=== PATIENT | male | born 1955 | race African-American/Black ===

== ENCOUNTER 2024-05-17 12:22 | Emergency (ER) | payer OTHER ==
[2024-05-17 12:27] VITALS: BP 114/75; PULSE 78; RESP 18; TEMP 98.4; BMI 17.6
== END 2024-05-17 13:50 | disposition home or self-care (01) ==
LOC: JERFT 12:22 → JER 12:22 → JERFT 13:50
DX: J01.01 Acute recurrent maxillary sinusitis (principal); H61.22 Impacted cerumen, left ear
CPT/HCPCS: 99283-25

== ENCOUNTER 2024-07-02 19:33 | Inpatient (IN) | payer OTHER ==
[2024-07-02 19:40] VITALS: BMI 15.7
[2024-07-02] MEDS ORDERED: FAMOTIDINE 20 MG/50 ML IVPB 20 MG/50 ML MG IVPB ONE (20:59)
[2024-07-02] MEDS ORDERED: ONDANSETRON 4 MG/2 ML VIAL ONE (20:59)
[2024-07-02] MEDS ORDERED: ACETAMINOPHEN INJECTION 100 ML ONE (20:59)
[2024-07-02] MEDS: ONDANSETRON 4 MG/2 ML VIAL IVPUSH ONE (21:06)
[2024-07-02] MEDS: ACETAMINOPHEN 1000 MG/100 ML BAG IVPB ONE (21:06)
[2024-07-02 21:07] LABS: BASO % 0.2 % (0-2.0); EOS % 1.3 % (0-4.5); HEMATOCRIT 36.6 % (35.4-49); HEMOGLOBIN 12.4 GM/dL (11.7-16.9); LYMPH % 5.9 % (8-40); MCH 33.2 pg (25.7-33.7); MCHC 33.9 g/dl (32.0-35.9); MEAN CELL VOLUME 97.9 fl (80-96); MEAN PLT VOLUME 8.2 fl (7.5-11.1); MONO % 8.6 % (3.8-10.2); PLATELET COUNT 216 10^3/uL (134-434); RBC 3.74 M/mm3 (4.00-5.60); RDW 14.8 % (11.9-15.9); WHITE BLOOD COUNT 8.6 K/mm3 (4.0-10.0)
[2024-07-02] MEDS: FAMOTIDINE 20 MG/50 ML IVPB 20 MG/50 ML MG IVPB ONE (21:28)
[2024-07-02 21:33] LABS: POTASSIUM 3.8 mmol/L (3.5-5.1)
[2024-07-02 21:35] LABS: ALBUMIN 3.9 g/dl (3.4-5.0); CALCIUM 9.7 mg/dL (8.5-10.1); MAGNESIUM 2.6 mg/dL (1.8-2.4)
[2024-07-02 21:38] LABS: CREATININE 1.8 mg/dL (0.55-1.3)
[2024-07-02 21:40] LABS: BILIRUBIN,TOTAL 0.7 mg/dL (0.2-1)
[2024-07-02] MEDS: LACTATED RINGERS SOLUTION 1000 ML INFUS.BAG IV ONE (22:02)
[2024-07-02] MEDS ORDERED: ONDANSETRON 4 MG/2 ML VIAL IVPUSH PRN (22:56)
[2024-07-02] MEDS ORDERED: SODIUM CHLORIDE 1,000 ML IV SCH (23:00)
[2024-07-03] MEDS: SODIUM CHLORIDE 1,000 ML IV SCH (00:58)
[2024-07-03 02:02] LABS: COCAINE, UR NEGATIVE (NEGATIVE); URINE AMPHETAMINES NEGATIVE (NEGATIVE); URINE BENZODIAZEPINES NEGATIVE (NEGATIVE)
[2024-07-03 02:03] LABS: PHENCYCLIDINE,URINE NEGATIVE (NEGATIVE)
[2024-07-03 02:14] LABS: METHADONE, UR POSITIVE (NEGATIVE); OPIATES, URI POSITIVE (NEGATIVE); URINE BARBITURATES NEGATIVE (NEGATIVE)
[2024-07-03] MEDS ORDERED: ACETAMINOPHEN 1000 MG/100 ML BAG IVPB PRN (06:17)
[2024-07-03] MEDS ORDERED: methaDONE HCL 10 MG TABLET ONE (06:36)
[2024-07-03] MEDS: methaDONE HCL 40 MG DISPERSABLE TABLET PO ONE (06:41)
[2024-07-03 07:30] LABS: HEMATOCRIT 29.7 % (35.4-49); HEMOGLOBIN 10.1 GM/dL (11.7-16.9); MCH 33.7 pg (25.7-33.7); MCHC 33.8 g/dl (32.0-35.9); MEAN CELL VOLUME 99.6 fl (80-96); PLATELET COUNT 173 10^3/uL (134-434); RBC 2.98 M/mm3 (4.00-5.60); RDW 14.1 % (11.9-15.9); WHITE BLOOD COUNT 5.5 K/mm3 (4.0-10.0)
[2024-07-03 07:45] LABS: POTASSIUM 3.8 mmol/L (3.5-5.1)
[2024-07-03 07:47] LABS: CALCIUM 8.6 mg/dL (8.5-10.1)
[2024-07-03 07:48] LABS: ALBUMIN 3.2 g/dl (3.4-5.0); BLOOD UREA NITROGEN 43.1 mg/dL (7-18); MAGNESIUM 2.3 mg/dL (1.8-2.4)
[2024-07-03 07:51] LABS: CREATININE 1.6 mg/dL (0.55-1.3); PHOSPHOROUS 2.9 mg/dL (2.5-4.9)
[2024-07-03 07:52] LABS: BILIRUBIN,TOTAL 0.7 mg/dL (0.2-1)
[2024-07-03 07:54] LABS: TOT PROT 6.1 g/dl (6.4-8.2)
[2024-07-03] MEDS ORDERED: PATIENT'S OWN MEDICATION (NON-FORMULARY) (Azelastine Hcl [Azelastine Hcl] 137 MCG/0.137 ML NS SCH (10:00)
[2024-07-03] MEDS: HEPARIN NA (PORCINE) 5,000 UNITS/ML 1ML VIAL SQ SCH (10:05)
[2024-07-03 11:25] VITALS: RESP 18
[2024-07-03] MEDS: LORATADINE 10 MG TABLET PO SCH (22:21)
[2024-07-04 06:53] VITALS: BP 123/72; PULSE 64; TEMP 98.2
[2024-07-04] MEDS: methaDONE HCL 40 MG DISPERSABLE TABLET PO ONE (10:10)
[2024-07-04 10:27] LABS: BASO % 0.7 % (0-2.0); EOS % 8.2 % (0-4.5); HEMATOCRIT 27.4 % (35.4-49); HEMOGLOBIN 9.3 GM/dL (11.7-16.9); LYMPH % 10.4 % (8-40); MCH 33.5 pg (25.7-33.7); MCHC 33.8 g/dl (32.0-35.9); MEAN CELL VOLUME 99.1 fl (80-96); MEAN PLT VOLUME 8.6 fl (7.5-11.1); MONO % 8.4 % (3.8-10.2); NEUT % 72.3 % (42.8-82.8); PLATELET COUNT 166 10^3/uL (134-434); RBC 2.76 M/mm3 (4.00-5.60); RDW 14.5 % (11.9-15.9); WHITE BLOOD COUNT 5.2 K/mm3 (4.0-10.0)
[2024-07-04 10:53] LABS: POTASSIUM 3.6 mmol/L (3.5-5.1)
[2024-07-04 11:03] LABS: ALBUMIN 2.9 g/dl (3.4-5.0); BLOOD UREA NITROGEN 28.5 mg/dL (7-18); CALCIUM 8.2 mg/dL (8.5-10.1)
[2024-07-04 11:06] LABS: BILIRUBIN,TOTAL 0.8 mg/dL (0.2-1); TOT PROT 5.8 g/dl (6.4-8.2)
[2024-07-04 11:07] LABS: CREATININE 1.4 mg/dL (0.55-1.3)
[2024-07-04] MEDS: LACTATED RINGERS SOLUTION 1,000 ML/1,000 ML INFUS.BAG IV SCH (15:05)
== END 2024-07-04 16:18 | disposition home or self-care (01) | DRG 392 ==
LOC: JER 19:33 → JERBED 22:24 → OBSVTOIN 07-03 09:03 → J8W 07-03 09:24
PROVIDERS: ADMIT Internal Medicine
DX: K29.00 Acute gastritis without bleeding (principal); E86.0 Dehydration; R19.7 Diarrhea, unspecified
CPT/HCPCS: 0241U-QW; 36415; 71045-TC-FY; 80053; 80307; 83690; 83735; 84100; 84484; 85025; 85027; 93005; 93010; 99285-25; G0378; J0131; J1644

== ENCOUNTER 2024-10-11 14:27 | Emergency (ER) | payer OTHER ==
[2024-10-11 14:34] VITALS: RESP 18; TEMP 98.3; BMI 18.3
[2024-10-11] MEDS ORDERED: ACETAMINOPHEN 500 MG TABLET (FP) PO ONE (15:18)
[2024-10-11] MEDS ORDERED: ACETAMINOPHEN 1000 MG/100 ML BAG IVPB ONE (15:20)
[2024-10-11] MEDS ORDERED: ACETAMINOPHEN 500 MG TABLET (FP) ONE (15:46)
[2024-10-11] MEDS: ACETAMINOPHEN 500 MG TABLET (FP) PO ONE (15:51)
[2024-10-11 17:49] LABS: THROAT:GRP A STREP NOT DETECTED (NOTDETECTED)
[2024-10-11 18:03] VITALS: BP 151/100; PULSE 84
== END 2024-10-11 18:03 | disposition home or self-care (01) ==
LOC: JER 14:27
DX: J02.9 Acute pharyngitis, unspecified (principal); R05.9 Cough, unspecified; Z20.822 Contact with and (suspected) exposure to COVID-19
CPT/HCPCS: 0241U-QW; 71046-TC-FY; 87651; 99284-25

== ENCOUNTER 2024-12-31 18:59 | Inpatient (IN) | payer OTHER ==
[2024-12-31] MEDS: LACTATED RINGERS SOLUTION 1000 ML INFUS.BAG IV ONE (19:56)
[2024-12-31 20:15] LABS: VENOUS BASE EXCESS 5.1 mmol/L (-2-2); VENOUS O2 SATURATION 26.5 % (70-80); VENOUS PCO2 61.5 mmHg (38-52); VENOUS PH 7.337 (7.310-7.410)
[2024-12-31 20:17] LABS: ABSOLUTE IMMATURE GRANULOCYTES 0.03 x10^3/uL (0.0-0.031); BASOPHILS # 0.02 x10^3/uL (0.01-0.08); EOSINOPHIL % 1.6 % (0.8-7.0); EOSINOPHILS # 0.13 x10^3/uL (0.04-0.54); HEMOGLOBIN 10.2 g/dL (13.7-17.5); MCHC 31.9 g/dl (32.3-36.5); MEAN CELL VOLUME 100.3 fl (79.0-92.2); MEAN PLT VOLUME 10.9 fl (9.4-12.4); MONOCYTE # 0.57 x10^3/uL (0.30-0.82); MONOCYTE % 6.9 % (5.3-12.2); PLATELET COUNT 214 x10^3/uL (163-337); RDW 14.8 % (12.2-16.4)
[2024-12-31 20:21] LABS: EPI CELLS >36 /uL (0-25.1); HYALINE CASTS 20 /uL (0-3.1); URINE APPEARANCE CLOUDY; URINE BACTERIA 18 /uL (0-1359); URINE BILIRUBIN 2+ (NEGATIVE); URINE COLOR DK YELLOW; URINE GLUCOSE (UA) NEGATIVE (NEGATIVE); URINE KETONE 1+ (NEGATIVE); URINE LEUK ESTERASE NEGATIVE (NEGATIVE); URINE NITRITE NEGATIVE (NEGATIVE); URINE PROTEIN 2+ (NEGATIVE); URINE RBC 362 /uL (0-23.9); URINE WBC 53 /uL (0-25.8)
[2024-12-31 20:39] LABS: POTASSIUM 3.8 mmol/L (3.5-5.1)
[2024-12-31 20:41] LABS: CALCIUM 8.8 mg/dL (8.5-10.1)
[2024-12-31 20:42] LABS: ALBUMIN 2.8 g/dl (3.4-5.0); BLOOD UREA NITROGEN 24.5 mg/dL (7-18)
[2024-12-31 20:45] LABS: CREATININE 1.9 mg/dL (0.55-1.3)
[2024-12-31 20:46] LABS: BILIRUBIN,TOTAL 0.5 mg/dL (0.2-1); TOT PROT 6.2 g/dl (6.4-8.2)
[2024-12-31 20:52] LABS: ACTIVATED PTT 30.5 SECONDS (25.2-36.5); INR 1.25 (0.83-1.09); LACTIC ACID 2.7 mmol/L (0.4-2.0); PROTHROMBIN TIME (PATIENT) 13.8 SEC (9.7-13.0)
[2024-12-31 23:05] LABS: POTASSIUM 3.5 mmol/L (3.5-5.1)
[2024-12-31 23:06] LABS: CALCIUM 8.8 mg/dL (8.5-10.1)
[2024-12-31 23:07] LABS: BLOOD UREA NITROGEN 23.5 mg/dL (7-18)
[2024-12-31 23:10] LABS: CREATININE 1.6 mg/dL (0.55-1.3)
[2025-01-01] MEDS: DEXTROSE 5%-NORMAL SALINE 1,000 ML IV SCH (01:53)
[2025-01-01 05:18] VITALS: BMI 14.6
[2025-01-01 08:51] LABS: ABSOLUTE IMMATURE GRANULOCYTES 0.04 x10^3/uL (0.0-0.031); BASOPHILS # 0.03 x10^3/uL (0.01-0.08); EOSINOPHIL % 1.2 % (0.8-7.0); EOSINOPHILS # 0.11 x10^3/uL (0.04-0.54); HEMATOCRIT 30.1 % (40.1-51.0); MCHC 33.2 g/dl (32.3-36.5); MEAN PLT VOLUME 10.9 fl (9.4-12.4); MONOCYTE # 0.75 x10^3/uL (0.30-0.82); MONOCYTE % 8.1 % (5.3-12.2); PLATELET COUNT 224 x10^3/uL (163-337); RDW 14.6 % (12.2-16.4)
[2025-01-01 09:58] LABS: POTASSIUM 3.9 mmol/L (3.5-5.1)
[2025-01-01] MEDS: HEPARIN NA (PORCINE) 5,000 UNITS/ML 1ML VIAL SQ SCH (10:19)
[2025-01-01 10:52] LABS: ALBUMIN 2.7 g/dl (3.4-5.0); BLOOD UREA NITROGEN 21.8 mg/dL (7-18); CALCIUM 8.8 mg/dL (8.5-10.1); MAGNESIUM 1.7 mg/dL (1.8-2.4)
[2025-01-01 10:54] LABS: PHOSPHOROUS 3.1 mg/dL (2.5-4.9)
[2025-01-01 10:55] LABS: BILIRUBIN,TOTAL 0.6 mg/dL (0.2-1); CREATININE 1.4 mg/dL (0.55-1.3); TOT PROT 6.1 g/dl (6.4-8.2)
[2025-01-01] MEDS: MAGNESIUM SULFATE IN WATER 2 GM/50 ML IVPB IVPB ONE (14:55)
[2025-01-02 08:34] LABS: HEMOGLOBIN 8.9 g/dL (13.7-17.5); MEAN CELL VOLUME 97.8 fl (79.0-92.2); MEAN PLT VOLUME 10.9 fl (9.4-12.4); PLATELET COUNT 191 x10^3/uL (163-337); RDW 14.5 % (12.2-16.4)
[2025-01-02 08:48] LABS: POTASSIUM 3.8 mmol/L (3.5-5.1)
[2025-01-02 08:50] LABS: CALCIUM 8.4 mg/dL (8.5-10.1)
[2025-01-02 08:51] LABS: BLOOD UREA NITROGEN 18.5 mg/dL (7-18); MAGNESIUM 1.5 mg/dL (1.8-2.4)
[2025-01-02 08:54] LABS: CREATININE 1.1 mg/dL (0.55-1.3); PHOSPHOROUS 2.4 mg/dL (2.5-4.9)
[2025-01-02] MEDS: MAGNESIUM 1GM/D5W - 1 GM/100 ML IVPB IVPB ONE (09:55)
[2025-01-02 10:08] LABS: Reticulocyte % 0.93 % (0.51-1.81)
[2025-01-02] MEDS: NAPH,MB-DB/K PH,MBDB POWDER PACKET PO ONE (17:23)
[2025-01-02] MEDS: MIRTAZAPINE 15 MG TABLET (FP) PO SCH (22:22)
[2025-01-02] MEDS: DEXTROSE 5%-0.45% SALINE 1,000 ML IV SCH (22:50)
[2025-01-03] MEDS: BUPIVACAINE HCL/PF 0.25% (2.5MG/ML) 10 ML VIAL IJ ONE
[2025-01-03] MEDS: ceFAZolin 2 GRAM PREMIX BAG IVPB ONE
[2025-01-03] MEDS: ACETAMINOPHEN 325 MG TABLET (FP) PO PRN (05:27)
[2025-01-03 09:35] LABS: ABSOLUTE IMMATURE GRANULOCYTES 0.03 x10^3/uL (0.0-0.031); BASOPHILS # 0.02 x10^3/uL (0.01-0.08); EOSINOPHIL % 1.7 % (0.8-7.0); EOSINOPHILS # 0.13 x10^3/uL (0.04-0.54); HEMATOCRIT 25.8 % (40.1-51.0); HEMATOCRIT 25.9 % (40.1-51.0); HEMOGLOBIN 8.3 g/dL (13.7-17.5); HEMOGLOBIN 8.4 g/dL (13.7-17.5); MCHC 32.6 g/dl (32.3-36.5); MEAN CELL VOLUME 98.1 fl (79.0-92.2); MEAN CELL VOLUME 98.9 fl (79.0-92.2); MEAN PLT VOLUME 10.9 fl (9.4-12.4); MEAN PLT VOLUME 11.2 fl (9.4-12.4); MONOCYTE # 0.72 x10^3/uL (0.30-0.82); MONOCYTE % 9.5 % (5.3-12.2); PLATELET COUNT 175 x10^3/uL (163-337); PLATELET COUNT 182 x10^3/uL (163-337); RDW 14.7 % (12.2-16.4); RDW 14.8 % (12.2-16.4)
[2025-01-03 09:41] LABS: INR 1.29 (0.83-1.09); PROTHROMBIN TIME (PATIENT) 14.1 SEC (9.7-13.0)
[2025-01-03 10:51] LABS: BILIRUBIN,TOTAL 0.4 mg/dL (0.2-1); POTASSIUM 3.4 mmol/L (3.5-5.1); TOT PROT 5.2 g/dl (6.4-8.2)
[2025-01-03 10:54] LABS: CREATININE 1.2 mg/dL (0.55-1.3)
[2025-01-03 10:58] LABS: ALBUMIN 2.3 g/dl (3.4-5.0)
[2025-01-03 11:00] LABS: BLOOD UREA NITROGEN 12.8 mg/dL (7-18)
[2025-01-03 11:01] LABS: PHOSPHOROUS 2.2 mg/dL (2.5-4.9)
[2025-01-03 11:03] LABS: MAGNESIUM 1.7 mg/dL (1.8-2.4)
[2025-01-03] MEDS ORDERED: BUPIVACAINE HCL/PF 0.25% (2.5MG/ML) 10 ML VIAL ONE (13:21)
[2025-01-03] MEDS ORDERED: HEPARIN NA (PORCINE) 5,000 UNITS/ML 1ML VIAL ONE (13:21)
[2025-01-03] MEDS: ALBUMIN HUMAN 5% 500 ML IV SOLUTION IV ONE ×2 (13:30→14:18)
[2025-01-03] MEDS ORDERED: DEXMEDETOMIDINE HCL 200 MCG/2 ML IVPB ONE (13:31)
[2025-01-03] MEDS ORDERED: ACETAMINOPHEN INJECTION 100 ML ONE (13:31)
[2025-01-03] MEDS ORDERED: REMIFENTANIL (ULTIVA) HCL 1 MG VIAL ONE (13:31)
[2025-01-03] MEDS ORDERED: LIDOCAINE HCL 4% PRESERVE-FREE 5 ML AMP ONE (13:31)
[2025-01-03] MEDS ORDERED: SODIUM CHLORIDE 0.9% P/F 10 ML VIAL IJ ONE (13:36)
[2025-01-03] MEDS ORDERED: ESMOLOL HCL 100,000 MCG/10 ML VIAL ONE (13:47)
[2025-01-03] MEDS ORDERED: KETAMINE HCL 200 MG/20 ML VIAL ONE ×2 (13:48→14:57)
[2025-01-03] MEDS ORDERED: GLYCOPYRROLATE 0.2 MG/1 ML VIAL ONE (13:50)
[2025-01-03] MEDS ORDERED: ONDANSETRON 4 MG/2 ML VIAL ONE (13:50)
[2025-01-03] MEDS ORDERED: MIDAZOLAM HCL 2 MG/2 ML SINGLE DOSE VIAL ONE (14:42)
[2025-01-03] MEDS ORDERED: DEXAMETHASONE SOD PHOSPHATE 4 MG/1 ML VIAL ONE (15:00)
[2025-01-03] MEDS ORDERED: ONDANSETRON 4 MG/2 ML VIAL IVPUSH PRN ×2 (15:42→16:40)
[2025-01-03] MEDS ORDERED: ACETAMINOPHEN 325 MG TABLET (FP) PO PRN (16:40)
[2025-01-03] MEDS: LACTATED RINGERS SOLUTION 1,000 ML IV SCH ×2 (17:14→19:15)
[2025-01-03] MEDS ORDERED: POTASSIUM CHLORIDE ORAL LIQUID 20 MEQ/15 ML PO ONE ×2 (18:00)
[2025-01-03] MEDS ORDERED: NAPH,MB-DB/K PH,MBDB POWDER PACKET PO ONE ×3 (18:00→20:00)
[2025-01-03] MEDS: MAGNESIUM SULF 50% (8.12 MEQ/2 ML-1 GM VIAL) IVPB ONE (19:15)
[2025-01-03] MEDS ORDERED: POTASSIUM CHLORIDE TABS 20 MEQ TABLET.ER (FP) PO ONE (20:00)
[2025-01-03] MEDS: POTASSIUM CHLORIDE TABS 20 MEQ TABLET.ER (FP) PO ONE (20:46)
[2025-01-03] MEDS: NAPH,MB-DB/K PH,MBDB POWDER PACKET PO ONE (20:46)
[2025-01-03] MEDS: MIRTAZAPINE 15 MG TABLET (FP) PO SCH (21:15)
[2025-01-04] MEDS: ACETAMINOPHEN 1000 MG/100 ML BAG IVPB ONE (08:54)
[2025-01-04] MEDS: MEROPENEM 1 GM in DEXTROSE 5%-WATER 100 ML IVPB ONE (09:26)
[2025-01-04 09:31] LABS: HEMATOCRIT 31.4 % (40.1-51.0); MCHC 31.8 g/dl (32.3-36.5); MEAN CELL VOLUME 98.7 fl (79.0-92.2); MEAN PLT VOLUME 11.1 fl (9.4-12.4); PLATELET COUNT 199 x10^3/uL (163-337); RDW 14.6 % (12.2-16.4)
[2025-01-04 09:52] LABS: BLOOD UREA NITROGEN 15.5 mg/dL (7-18)
[2025-01-04 09:54] LABS: POTASSIUM 4.1 mmol/L (3.5-5.1)
[2025-01-04 09:58] LABS: ALBUMIN 3.1 g/dl (3.4-5.0); BILIRUBIN,TOTAL 0.9 mg/dL (0.2-1); CALCIUM 9.7 mg/dL (8.5-10.1); CREATININE 1.5 mg/dL (0.55-1.3); TOT PROT 6.8 g/dl (6.4-8.2)
[2025-01-04] MEDS: LACTATED RINGERS SOLUTION 1,000 ML IV SCH (12:00)
[2025-01-04 12:59] LABS: MAGNESIUM 1.4 mg/dL (1.8-2.4)
[2025-01-04 13:03] LABS: PHOSPHOROUS 2.7 mg/dL (2.5-4.9)
[2025-01-04 13:30] VITALS: RESP 18
[2025-01-04] MEDS: THIAMINE HCL 200 MG/2 ML VIAL IVPB SCH (13:58)
[2025-01-04] MEDS ORDERED: MAGNESIUM 2GM/50ML STERILE WATER IVPB IVPB ONE (15:26)
[2025-01-04] MEDS: morphine CARPU-JECT 2 MG/1 ML DISP.SYRIN IVPUSH ONE (17:47)
[2025-01-04] MEDS: MAGNESIUM 2GM/50ML STERILE WATER IVPB IVPB ONE (17:47)
[2025-01-04] MEDS ORDERED: MEROPENEM 1 GM in DEXTROSE 5%-WATER 100 ML IVPB SCH ×2 (18:00→22:00)
[2025-01-04 19:35] VITALS: BP 107/78; PULSE 81; TEMP 98.6
== END 2025-01-04 19:20 | disposition short-term general hospital (02) | DRG 146 ==
LOC: JER 18:59 → JERBED 22:31 → OBSVTOIN 01-01 01:10 → J6S 01-01 03:11
PROVIDERS: ADMIT Student in an Organized Health Care Education/Training Program; ATTEND Internal Medicine
DX: C32.9 Malignant neoplasm of larynx, unspecified (principal); E43 Unspecified severe protein-calorie malnutrition; G93.41 Metabolic encephalopathy; Z68.1 Body mass index [BMI] 19.9 or less, adult; N17.9 Acute kidney failure, unspecified; E87.20 Acidosis, unspecified; E86.0 Dehydration; I12.9 Hypertensive chronic kidney disease with stage 1 through stage 4 chronic kidney disease, or unspecified chronic kidney disease; N18.9 Chronic kidney disease, unspecified; R62.7 Adult failure to thrive; F11.90 Opioid use, unspecified, uncomplicated; E83.42 Hypomagnesemia; E87.6 Hypokalemia; E83.39 Other disorders of phosphorus metabolism; Z85.01 Personal history of malignant neoplasm of esophagus
CPT/HCPCS: 0241U-QW; 36415; 71045-TC-FY; 71260-TC; 74160-TC; 80048; 80053; 81003; 82607; 82728; 82746; 82803; 82962; 83540; 83550; 83605; 83735; 84100; 84484; 85025; 85027; 85610; 85730; 86850; 86900; 86901; 87040; 87086; 93005; 93010; 94760; 97116-GP; 97162-GP; 99285-25; G0378; J0131; J1644; Q9967